=== PATIENT | male | born 1965 | race African-American/Black ===

== ENCOUNTER 2019-12-08 10:43 | Emergency (ER) | payer MEDICAID ==
[~2019-12-08] VITALS: Ht 190.5 cm; Wt 91.0 kg
[2019-12-08 12:05] LABS: BASOPHILS % 1.5 % (0.0-2.0); HEMATOCRIT. 39.2 % (42.0-52.0); HEMOGLOBIN. 12.7 g/dL (14.0-18.0); LYMPHOCYTES % 21.6 % (20.0-50.0); MEAN CORPUSCULAR HEMOGLOBIN 24.3 pg (28.0-32.0); MEAN CORPUSCULAR VOLUME 75.1 fL (80.0-94.0); MEAN PLATELET VOLUME 9.2 fl (7.4-10.4); MONOCYTES % 6.1 % (2.0-8.0); NEUTROPHILS % 69.8 % (40.0-76.0); PLATELET 251 x1000/uL (130-400); RED BLOOD CELL COUNT 5.22 mill/uL (4.7-6.1); RED CELL DISTRIBUTION WIDTH 14.3 % (11.6-14.6)
[2019-12-08 12:12] LABS: CHLORIDE 102 mEq/L (98-107)
[2019-12-08 12:16] LABS: ETHANOL BLOOD 13 mg/dL
[2019-12-08] MEDS ORDERED: POTASSIUM CHLORIDE 20MEQ TABLET SR PO NR (14:15)
[2019-12-08 14:29] LABS: CLARITY URINE CLEAR (CLEAR); COLOR URINE YELLOW (YELLOW); KETONES URINE NEGATIVE (NEGATIVE); LEUKOCYTE ESTERASE URINE NEGATIVE (NEGATIVE); NITRITE URINE NEGATIVE (NEGATIVE); OCCULT BLOOD URINE NEGATIVE (NEGATIVE); PH URINE 5.5 (4.5-8.0); PROTEIN URINE NEGATIVE (NEGATIVE); SPECIFIC GRAVITY URINE 1.015 (1.005-1.030); UROBILINOGEN URINE 0.2 E.U./dL (0.2-1.0)
[2019-12-08 15:03] LABS: *AMPHETAMINES SCREEN URINE PRESUMTIVE POSITIVE (NEGATIVE); *BARBITURATES SCREEN URINE NEGATIVE (NEGATIVE); *BENZODIAZEPINES SCREEN URINE NEGATIVE (NEGATIVE); *COCAINE SCREEN URINE NEGATIVE (NEGATIVE); METHADONE URINE SCREEN NEGATIVE (NEGATIVE); OPIATES URINE SCREEN NEGATIVE (NEGATIVE); PHENCYCLIDINE URINE SCREEN NEGATIVE (NEGATIVE)
[2019-12-08 15:04] LABS: CANNABINOID URINE SCREEN PRESUMTIVE POSITIVE (NEGATIVE)
[2019-12-09] MEDS ORDERED: RISPERIDONE 1MG TABLET PO SCH (09:00)
[2019-12-09] MEDS ORDERED: DIVALPROEX SODIUM 500MG DR TABLET PO SCH (09:00)
[2019-12-09] MEDS: DIVALPROEX SODIUM 250MG DR TABLET PO SCH ×2 (09:00→23:29)
[2019-12-09] MEDS ORDERED: TRAZODONE HCL 50MG TABLET PO SCH (21:00)
[2019-12-10 02:45] VITALS: BP 108/65
== END 2019-12-10 03:04 ==
LOC: ER 10:43
DX: F20.9 Schizophrenia, unspecified (principal); R45.851 Suicidal ideations; F32.9 Major depressive disorder, single episode, unspecified; F15.10 Other stimulant abuse, uncomplicated; Z75.1 Person awaiting admission to adequate facility elsewhere
CPT/HCPCS: 36415; 80053; 80305; 80320; 81003; 85025; 99285; G0480